=== PATIENT | female | born 1990 | race Caucasian/White ===

== ENCOUNTER 2017-02-17 22:11 | Emergency (ER) | payer OTHER ==
--- NOTE | 2017-02-17 23:07 | ERPHSYRPT ---
- History of Present Illness Time Seen by Provider: 02/17/17 23:02 Source: patient Exam Limitations: no limitations Patient Subjective Stated Complaint: Pt accidentally stuck right index finger with dirty insulin needle at work just [employer]. Triage Nursing Assessment: Pt alert, oriented, answers all questions appropriately. Skin pink, warm, dry. Resps non-labored. Pt ambulatory to tx room, steady gait noted. No obvious injury noted. Physician History: 26-year-old female employee of [employer] Arrives with complaint of fingerstick to her right index finger 30 minutes prior to arrival. She states that she stuck her finger with a dirty insulin needle 30 minutes prior to arrival. Patient states that she has had hepatitis immunization she states her tetanus is up-to-date. Past medical history is negative. Timing/Duration: today (30 minutes prior to arrival) Severity: mild Modifying Factors: Improves With: nothing Associated Symptoms: denies symptoms Allergies/Adverse Reactions: No Known Drug Allergies Allergy (Unverified 02/23/15 09:46) Hx Tetanus, Diphtheria Vaccination/Date Given: Yes Hx Influenza Vaccination/Date Given: Yes Hx Pneumococcal Vaccination/Date Given: No Immunizations Up to Date: Yes - Review of Systems Constitutional: No Fever, No Chills Eyes: No Symptoms Ears, Nose, & Throat: No Symptoms Respiratory: No Cough, No Dyspnea Cardiac: No Chest Pain, No Edema, No Syncope Abdominal/Gastrointestinal: No Abdominal Pain, No Nausea, No Vomiting, No Diarrhea Genitourinary Symptoms: No Dysuria Musculoskeletal: No Back Pain, No Neck Pain Skin: Other (finger stick right index finger), No Rash Neurological: No Dizziness, No Focal Weakness, No Sensory Changes Psychological: No Symptoms Endocrine: No Symptoms All Other Systems: Reviewed and Negative - Past Medical History Pertinent Past Medical History: Yes Neurological History: No Pertinent History ENT History: No Pertinent History Cardiac History: No Pertinent History Respiratory History: No Pertinent History Endocrine Medical History: No Pertinent History Musculoskeletal History: No Pertinent History GI Medical History: No Pertinent History History: No Pertinent History Psycho-Social History: No Pertinent History Female Reproductive Disorders: No Pertinent History - Past Surgical History Past Surgical History: No Neuro Surgical History: No Pertinent History Cardiac: No Pertinent History Respiratory: No Pertinent History Gastrointestinal: No Pertinent History Genitourinary: No Pertinent History Musculoskeletal: No Pertinent History Female Surgical History: No Pertinent History - Social History Smoking Status: Never smoker How long have you smoked: 5 Exposure to second hand smoke: No Drug Use: none Patient Lives Alone: No - Nursing Vital Signs Nursing Vital Signs: Pain Scale Pain Intensity 0 - Physical Exam General Appearance: no apparent distress, alert Eye Exam: PERRL/EOMI, eyes nml inspection Ears, Nose, Throat Exam: normal ENT inspection, TMs normal, pharynx normal, moist mucous membranes Neck Exam: normal inspection, non-tender, supple, full range of motion Respiratory Exam: normal breath sounds, lungs clear, No respiratory distress Cardiovascular Exam: regular rate/rhythm, normal heart sounds, normal peripheral pulses Gastrointestinal/Abdomen Exam: soft, normal bowel sounds, No tenderness, No mass Back Exam: normal inspection, normal range of motion, No CVA tenderness, No vertebral tenderness Extremity Exam: normal inspection, normal range of motion, pelvis stable Skin Exam: normal color, warm, dry, No rash - Course Nursing assessment & vital signs reviewed: Yes Ordered Tests: Active Orders 24 hr Category Date Time Status Wound Care STAT Care 02/17/17 22:44 Active - Progress Progress: improved Progress Note: 02/17/17 23:05 26-year-old white female arrives with complaint of needlestick on her right finger 30 minutes prior to arrival. Patient states that she stuck herself with a dirty insulin needle in the right index finger. Patient cleaned the area immediately afterwards. She has no complaints, Patient does not want HIV prophylaxis at this time Appropriate labs including source patient labs have been ordered by the charge nurse. Will discharge patient - Departure Time of Disposition: 23:06 Departure Disposition: Home Clinical Impression: needlestick right index finger Condition: Fair Critical Care Time: No Referrals: LINO ALVAREZ MD [Primary Care Provider] - Additional Instructions: Return home (work) Follow-up with your company physician. Return for acute distress or for severe symptoms.
[2017-02-19 08:03] LABS: Hepatitis B Surface Ab.Quant >1000.00 mIU/mL (0.00-8.49)
[2017-02-19 08:04] LABS: Hepatitis B Sur Ag Screen Non Reactive (Non Reactive)
== END 2017-02-17 23:44 | disposition home or self-care (01) ==
LOC: ED 22:11 → ER - EH 22:11
DX: S61.230A Puncture wound without foreign body of right index finger without damage to nail, initial encounter (principal); W46.1XXA Contact with contaminated hypodermic needle, initial encounter; Y93.F9 Activity, other caregiving; Y92.239 Unspecified place in hospital as the place of occurrence of the external cause; Y99.0 Civilian activity done for income or pay
CPT/HCPCS: 36415; 86317; 86701; 86702; 86803; 87340; 87389; 99282